=== PATIENT | female | born 1990 | race Two or more races ===

== ENCOUNTER 2017-03-10 12:00 | Emergency (ER) | payer OTHER ==
[~2017-03-10] VITALS: Ht 170.2 cm; Wt 81.8 kg
--- NOTE | 2017-03-10 13:44 | REP ---
Clinical: Pelvic pain. IUD placement. Technique: Transabdominal pelvic ultrasound followed by transvaginal examination for better evaluation of the endometrium and adnexa with color Doppler evaluation of the ovaries. Findings: Bladder is unremarkable and measures 7.5 x 6.1 x 3.5 cm . Normal anteverted uterus measures 6 x 4.7 x 5.9 cm. The endometrial complex measures 3.1 mm thickness. No discrete uterine or endometrial abnormalities are appreciated. The IUD is identified in the lower uterine segment extending to the cervix and the prongs are identified extending into the myometrium. Bilateral ovaries are normal in appearance. Right ovary measures 3.8 x 2.5 x 3.7 cm. Left ovary measures 3.5 x 2.1 x 2.1 cm. No pelvic fluid or adnexal mass lesion. Impression: IUD is identified within the lower uterine segment extending into the cervix with prongs extending into the myometrium. Correlation is recommended. Signed by Anton Hightower MD 03/10/2017 01:35 P
[2017-03-10 14:19] VITALS: BP 115/73
--- NOTE | 2017-03-10 15:41 | ED PDOC ---
Post-Departure Follow-Up ft jennifer ob faxed formal report of logan hart for fu Sherry Stover MD Mar 10, 2017 15:40
== END 2017-03-10 14:20 | disposition home or self-care (01) ==
LOC: M ED 12:00
DX: Z97.5 Presence of (intrauterine) contraceptive device (principal); R10.2 Pelvic and perineal pain; F32.9 Major depressive disorder, single episode, unspecified; F17.200 Nicotine dependence, unspecified, uncomplicated

== ENCOUNTER 2017-03-11 10:37 | Day surgery (SDC) | payer OTHER ==
[~2017-03-11] VITALS: Ht 172.7 cm; Wt 81.6 kg
[2017-03-11] MEDS ORDERED: NS 500 ML IV ONE ×2 (11:45)
[2017-03-11] MEDS ORDERED: KETOROLAC 30 MG/ML VIAL (J1885) IV ONE ×2 (11:45→19:30)
[2017-03-11 12:06] LABS: EOS # 0.3 K/mm3 (0.0-0.50); EOS % 3.8 % (0.0-3.0); LYMPH # 2.8 K/mm3 (1.5-6.5); LYMPH % 31.7 % (24.0-44.0); MEAN CORPUSCULAR HEMOGLOBIN 27.6 pg (27.0-33.0); MEAN CORPUSCULAR HGB CONC 31.4 g/dl (32.0-36.5); MEAN CORPUSCULAR VOLUME 87.9 fl (80.0-96.0); MONO # 0.6 K/mm3 (0.0-0.8); MONO % 6.9 % (0.0-5.0); NEUTROPHILS # 4.6 K/mm3 (1.8-7.7); NEUTROPHILS % 52.5 % (36.0-66.0); PLATELET COUNT, AUTOMATED 300 k/mm3 (150-450); RED CELL DISTRIBUTION WIDTH 13.2 % (11.5-14.5); WHITE BLOOD COUNT 8.7 K/mm3 (4.0-10.0)
[2017-03-11 12:07] LABS: ADD MANUAL DIFFER NO; BASO # 0.1 K/mm3 (0.0-0.2); DIFF SLIDE NUMBER 240; LARGE UNSTAINED CELL # 0.4 K/mm3 (0.0-0.4)
[2017-03-11 12:25] LABS: ANION GAP 7 MEQ/L (8-16); BLOOD UREA NITROGEN 13 MG/DL (7-18); CALCIUM LEVEL 8.7 MG/DL (8.5-10.1); CARBON DIOXIDE LEVEL 25 MEQ/L (21-32); CHLORIDE LEVEL 109 MEQ/L (98-107); CREATININE FOR GFR 0.74 MG/DL (0.55-1.02); GLOMERULAR FILTRATION RATE > 60.0 (>60); GLUCOSE, FASTING 73 MG/DL (70-105); HCG, SERUM QUANTITATIVE < 1.0 MIU/ML; POTASSIUM SERUM 4.2 MEQ/L (3.5-5.1); SODIUM LEVEL 141 MEQ/L (136-145)
[2017-03-11 15:00] VITALS: BP 129/78
[2017-03-11] MEDS ORDERED: ACETAMINOPHEN 650 MG SUPP As Ordered ONE (18:13)
[2017-03-11] MEDS ORDERED: ROCURONIUM BROMIDE 50 MG/5 ML VIAL/SYRINGE As Ordered ONE (18:41)
[2017-03-11] MEDS ORDERED: MIDAZOLAM INJ 2 MG/2 ML VIAL (J2250) As Ordered ONE (18:41)
[2017-03-11] MEDS ORDERED: fentaNYL 100 MCG/2 ML INJECTION (J3010) As Ordered ONE (18:41)
[2017-03-11] MEDS ORDERED: LIDOCAINE 2% INJ 100 MG/5 ML SDV (FOR ANES.) As Ordered ONE (18:41)
[2017-03-11] MEDS ORDERED: PROPOFOL 200 MG/20 ML VIAL As Ordered ONE (18:41)
[2017-03-11] MEDS ORDERED: dexameTHASONE 4 MG/ML 1ML VIAL (J1100) As Ordered ONE (18:49)
[2017-03-11] MEDS ORDERED: ONDANSETRON 4MG/2ML VIAL (J2405) As Ordered ONE (18:49)
[2017-03-11] MEDS ORDERED: SUGAMMADEX SODIUM 500 MG/5 ML VIAL (BRIDION) As Ordered ONE (18:53)
[2017-03-11] MEDS ORDERED: KETOROLAC 60 MG/2 ML VIAL (J1885) As Ordered ONE (19:01)
[2017-03-11] MEDS ORDERED: PERCOCET 5MG/325MG TAB PO PRN (19:30)
[2017-03-11] MEDS ORDERED: METOCLOPRAMIDE INJ 10MG/2ML VIAL (J2765) IV PRN (19:30)
[2017-03-11] MEDS ORDERED: ONDANSETRON 4MG/2ML VIAL (J2405) IV PRN (19:30)
[2017-03-11] MEDS ORDERED: LR 1,000 ML IV SCH (19:30)
[2017-03-11] MEDS ORDERED: fentaNYL 100 MCG/2 ML INJECTION (J3010) IV PRN (19:30)
[2017-03-11] MEDS ORDERED: MORPHINE 2 MG/ML 1ML SYRINGE IV PRN (19:30)
[2017-03-11 19:36] VITALS: BP 116/70
--- NOTE | 2017-03-11 20:25 | RO ---
DATE OF PROCEDURE: 03/11/2017 PREPROCEDURE DIAGNOSIS: Embedded intrauterine contraceptive device (IUCD) in the myometrium. POSTPROCEDURE DIAGNOSIS: Embedded intrauterine contraceptive device (IUCD) endometrium. OPERATION PROPOSED: Hysteroscopy, dilation and curettage (D and C), removal of intrauterine contraceptive device, possible laparoscopy. OPERATION PERFORMED: Hysteroscopy, dilation and curettage, removal of intrauterine contraceptive device. SURGEON: Dr. Pa [facility]: ANESTHESIA: General. ESTIMATED BLOOD LOSS: Less than 20 mL. DESCRIPTION OF PROCEDURE: Under adequate anesthesia, prepped and draped in the lithotomy position, bladder drained for 25 mL of clear urine. Weighted speculum in vagina. Single tooth tenaculum on the anterior lip of the cervix. Evaluation revealed some cervical uterine prolapse. We could not visualize the strings. The uterus was sounded to a depth of 9 cm. Hysteroscope was introduced. Panoramic review reviewed, the IUCD with one of the arms perforating into the myometrium. We had good visualization, and under direct visualization, we removed the IUCD and it was sent to pathology under separate cover. The uterus was placed in anatomical position. Hysteroscopic evaluation postoperatively was negative for perforation, extension, and we used 150 mL in, 150 mL out. The uterus was placed in anatomical position, well contracted, and the patient was sent to recovery in good condition.
[2017-03-12] MEDS ORDERED: IBUPROFEN 800 MG TAB PO SCH (04:00)
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
== END 2017-03-11 21:00 | disposition home or self-care (01) ==
LOC: M ED 10:37 → M SDC 12:00 → M MS5PR 13:20 → M SDC 21:00
PROVIDERS: ATTEND Obstetrics & Gynecology
DX: T83.39XA Other mechanical complication of intrauterine contraceptive device, initial encounter (principal); F17.210 Nicotine dependence, cigarettes, uncomplicated; F32.9 Major depressive disorder, single episode, unspecified; Y76.8 Miscellaneous obstetric and gynecological devices associated with adverse incidents, not elsewhere classified
CPT/HCPCS: 58562; 80048; 84702; 85025; 88300; 96374; 99284; J1100; J1885; J2250; J2405; J3010

== ENCOUNTER 2017-04-05 09:43 | Emergency (ER) | payer OTHER, SELFPAY ==
[~2017-04-05] VITALS: Ht 170.2 cm; Wt 82.2 kg
[2017-04-05 10:48] LABS: BASO % 0.3 % (0.0-1.0); EOS # 0.2 10^3/uL (0.0-0.50); EOS % 2.8 % (0.0-3.0); IMMATURE GRANULOCYTE % 0.3 % (0-0); LYMPH # 2.6 10^3/uL (1.5-6.5); LYMPH % 42.3 % (24.0-44.0); MEAN CORPUSCULAR HEMOGLOBIN 27.3 pg (27.0-33.0); MEAN CORPUSCULAR HGB CONC 32.2 g/dl (32.0-36.5); MEAN CORPUSCULAR VOLUME 84.7 fl (80.0-96.0); MONO # 0.6 10^3/uL (0.0-0.8); NEUTROPHILS # 2.8 10^3/uL (1.8-7.7); NEUTROPHILS % 45.3 % (36.0-66.0); PLATELET COUNT, AUTOMATED 319 10^3/uL (150-450); RED CELL DISTRIBUTION WIDTH 13.9 % (11.5-14.5); WHITE BLOOD COUNT 6.1 10^3/uL (4.0-10.0)
[2017-04-05 10:49] LABS: ADD MANUAL DIFFER NO; DIFF SLIDE NUMBER 166
[2017-04-05 11:16] LABS: ALBUMIN 3.7 GM/DL (3.2-5.2); ALBUMIN/GLOBULIN RATIO 0.97 (1.00-1.93); ALKALINE PHOSPHATASE 83 U/L (45-117); ALT/SGPT 21 U/L (12-78); ANION GAP 5 MEQ/L (8-16); AST/SGOT 14 U/L (15-37); BILIRUBIN,DIRECT 0.2 MG/DL (0.0-0.2); BILIRUBIN,TOTAL 0.7 MG/DL (0.2-1.0); BLOOD UREA NITROGEN 14 MG/DL (7-18); CALCIUM LEVEL 8.7 MG/DL (8.5-10.1); CARBON DIOXIDE LEVEL 28 MEQ/L (21-32); CHLORIDE LEVEL 107 MEQ/L (98-107); CREATININE FOR GFR 0.76 MG/DL (0.55-1.02); GLOMERULAR FILTRATION RATE > 60.0 (>60); GLUCOSE, FASTING 97 MG/DL (70-105); POTASSIUM SERUM 3.4 MEQ/L (3.5-5.1); SODIUM LEVEL 140 MEQ/L (136-145); TOTAL PROTEIN 7.5 GM/DL (6.4-8.2)
--- NOTE | 2017-04-05 11:49 | REP ---
Chest x-ray: Two views. History: Chest pain. Comparison chest x-ray March 07, 2016. Findings: The lungs are symmetrically aerated and free of infiltrate. Pleural angles are sharp. Heart size is normal. No bony abnormality is seen. Pulmonary vasculature is not increased. Nipple jewelry is noted. Impression: Negative chest x-ray. Signed by Law Atkins MD 04/05/2017 03:05 P
[2017-04-05] MEDS ORDERED: ISOVUE-370 76% 100ML VIAL (Q9967) As Ordered ONE (11:57)
--- NOTE | 2017-04-05 12:48 | REP ---
CT pulmonary angiogram: With IV contrast. History: Chest pain, question pulmonary embolus. Comparison studies: Comparison is made with today's chest x-ray. Contrast dose: 75 cc's of Isovue [address] technique: Helical scanning is acquired and overlapping 1.5 mm and contiguous 3 mm axial images are reformatted. In addition, a 3-D work station is deployed to generate thick slab maximum intensity projection images in sagittal and coronal imaging projections. CT pulmonary angiographic findings: There is good opacification of the pulmonary arterial tree. There is no CT evidence of pulmonary embolism. Thoracic aorta enhances homogeneously and is normal in course and caliber. Maximal intensity projection images show no filling defect or vessel cutoff to suggest pulmonary embolus. The lung suero are clear. No pleural effusion is seen. No hilar or mediastinal mass or adenopathy is observed. There is minimal right apical pleuroparenchymal scarring. No pulmonary nodule is appreciated. No bony destructive lesion seen. Impression: No CT evidence of pulmonary embolism. Unremarkable CT pulmonary angiogram with IV contrast. Signed by Law Atkins MD 04/05/2017 12:39 P
[2017-04-05 13:02] VITALS: BP 117/73
--- NOTE | 2017-04-06 09:16 | ECGEPIP ---
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
== END 2017-04-05 13:03 | disposition home or self-care (01) ==
LOC: M ED 09:43
DX: R07.89 Other chest pain (principal); F33.9 Major depressive disorder, recurrent, unspecified; F17.210 Nicotine dependence, cigarettes, uncomplicated
CPT/HCPCS: 36415; 71020; 71275; 80048; 80076; 81025; 82550; 82553; 83690; 84443; 85025; 85379; 93005; 99284; Q9967

== ENCOUNTER → 2017-10-07 | Outpatient (CLI) | payer OTHER, SELFPAY ==
[2017-10-07 20:17] LABS: BASO % 0.5 % (0.0-1.0); EOS # 0.2 10^3/uL (0.0-0.50); EOS % 2.5 % (0.0-3.0); HEMATOCRIT 42.1 % (36.0-47.0); HEMOGLOBIN 13.4 g/dl (12.0-15.5); IMMATURE GRANULOCYTE % 0.2 % (0-3.0); LYMPH # 3.5 10^3/uL (1.5-6.5); LYMPH % 41.5 % (24.0-44.0); MEAN CORPUSCULAR HEMOGLOBIN 27.2 pg (27.0-33.0); MEAN CORPUSCULAR HGB CONC 31.8 g/dl (32.0-36.5); MEAN CORPUSCULAR VOLUME 85.6 fl (80.0-96.0); MONO # 0.7 10^3/uL (0.0-0.8); MONO % 8.7 % (0.0-5.0); NEUTROPHILS % 46.6 % (36.0-66.0); PLATELET COUNT, AUTOMATED 328 10^3/uL (150-450); RED BLOOD COUNT 4.92 10^6/uL (4.00-5.40); RED CELL DISTRIBUTION WIDTH 13.8 % (11.5-14.5); WHITE BLOOD COUNT 8.5 10^3/uL (4.0-10.0)
[2017-10-07 20:25] LABS: APPEARANCE, URINE CLEAR (CLEAR); BACTERIA, URINE AUTO NEGATIVE (NEGATIVE); BILIRUBIN, URINE AUTO NEGATIVE (NEGATIVE); BLOOD, URINE BLOOD 1+ (NEGATIVE); COLOR, URINE YELLOW (YELLOW); GLUCOSE, URINE (UA) AUTO NEGATIVE (NEGATIVE); KETONE, URINE AUTO NEGATIVE (NEGATIVE); LEUKOCYTE ESTERASE, URINE AUTO NEGATIVE (NEGATIVE); NITRITE, URINE AUTO NEGATIVE (NEGATIVE); PROTEIN, URINE AUTO NEGATIVE (NEGATIVE); RBC, URINE AUTO 1 /HPF (0-3); SPECIFIC GRAVITY URINE AUTO 1.023 (1.002-1.035); SQUAMOUS EPITHELIAL CELL UR AU 2 /HPF (0-6); UROBILINOGEN, URINE AUTO 0.2 mg/dL (0.0-2.0); WBC, URINE AUTO 1 /HPF (0-3)
[2017-10-07 20:29] LABS: INR 0.95; PROTHROMBIN TIME 12.8 SECONDS (12.4-14.5)
[2017-10-07 20:30] LABS: PARTIAL THROMBOPLASTIN TIME 34.5 SECONDS (26.8-37.9)
[2017-10-07 20:35] LABS: ALBUMIN 4.1 GM/DL (3.2-5.2); ALBUMIN/GLOBULIN RATIO 1.14 (1.00-1.93); ALKALINE PHOSPHATASE 80 U/L (45-117); ALT/SGPT 14 U/L (12-78); ANION GAP 5 MEQ/L (8-16); AST/SGOT 13 U/L (7-37); BILIRUBIN,TOTAL 0.3 MG/DL (0.2-1.0); BLOOD UREA NITROGEN 14 MG/DL (7-18); CALCIUM LEVEL 9.2 MG/DL (8.5-10.1); CARBON DIOXIDE LEVEL 29 MEQ/L (21-32); CHLORIDE LEVEL 107 MEQ/L (98-107); CREATININE FOR GFR 0.84 MG/DL (0.55-1.30); GLOMERULAR FILTRATION RATE > 60.0 (>60); GLUCOSE, FASTING 93 MG/DL (70-100); HCG, SERUM QUANTITATIVE < 1.0 MIU/ML; POTASSIUM SERUM 4.3 MEQ/L (3.5-5.1); SODIUM LEVEL 141 MEQ/L (136-145); TOTAL PROTEIN 7.7 GM/DL (6.4-8.2)
[2017-10-08 11:52] LABS: HIV 1&2 SCREEN CENTAUR NEGATIVE (NEGATIVE)
== END ==
LOC: M LRY 18:44
DX: Z01.818 Encounter for other preprocedural examination (principal)
CPT/HCPCS: 80053

== ENCOUNTER 2021-12-31 11:49 | Emergency (ER) | payer OTHER, SELFPAY ==
[~2021-12-31] VITALS: Ht 170.2 cm; Wt 94.8 kg
[2021-12-31 12:33] LABS: BASO % 0.5 % (0.0-1.0); EOS # 0.1 10^3/uL (0.0-0.5); EOS % 2.1 % (0.0-3.0); HEMATOCRIT 40.7 % (36.0-47.0); HEMOGLOBIN 13.1 g/dl (12.0-15.5); LYMPH # 2.4 10^3/uL (1.5-5.0); LYMPH % 37.9 % (24.0-44.0); MEAN CORPUSCULAR HEMOGLOBIN 27.8 pg (27.0-33.0); MEAN CORPUSCULAR HGB CONC 32.2 g/dl (32.0-36.5); MEAN CORPUSCULAR VOLUME 86.4 fl (80.0-96.0); MONO # 0.6 10^3/uL (0.0-0.8); MONO % 10.2 % (2.0-8.0); NEUTROPHILS # 3.1 10^3/uL (1.5-8.5); PLATELET COUNT, AUTOMATED 315 10^3/uL (150-450); RED BLOOD COUNT 4.71 10^6/uL (4.00-5.40); WHITE BLOOD COUNT 6.3 10^3/uL (4.0-10.0)
[2021-12-31 12:59] LABS: BLOOD UREA NITROGEN 11 MG/DL (7-18); CALCIUM LEVEL 8.8 MG/DL (8.5-10.1); CARBON DIOXIDE LEVEL 25 MEQ/L (21-32); CHLORIDE LEVEL 108 MEQ/L (98-107); CREATININE FOR GFR 0.86 MG/DL (0.55-1.30); GLOMERULAR FILTRATION RATE > 60.0 (>60); GLUCOSE, FASTING 88 MG/DL (70-100); POTASSIUM SERUM 4.1 MEQ/L (3.5-5.1); SODIUM LEVEL 139 MEQ/L (136-145)
[2021-12-31] MEDS ORDERED: PROV10TA PO (14:04)
[2021-12-31 14:11] VITALS: BP 115/72
== END 2021-12-31 14:20 | disposition home or self-care (01) ==
LOC: M ED 11:49
DX: N92.6 Irregular menstruation, unspecified (principal); N83.202 Unspecified ovarian cyst, left side